=== PATIENT | male | born 2000 | race Hispanic/Latino ===

== ENCOUNTER 2022-07-15 13:22 | Emergency (ER) | payer OTHER ==
[~2022-07-15] VITALS: Ht 180.3 cm; Wt 104.3 kg
[2022-07-15 13:26] VITALS: BP 128/79
[2022-07-15] MEDS ORDERED: GENTAMICIN SULFATE 0.3% 5ML DROPS OD SCH (14:00)
[2022-07-15] MEDS ORDERED: TETRACAINE HCL 0.5% 4 ML OPHTH SOLN OP SCH (14:00)
[2022-07-15] MEDS ORDERED: FLUORESCEIN SODIUM 1 STRIP STRIP OP SCH (14:00)
[2022-07-15] MEDS ORDERED: TETANUS/DIPHTHERIA TOXOID [ADULT] 0.5 ML VIAL IM ONE (14:00)
== END 2022-07-15 14:50 | disposition home or self-care (01) ==
LOC: EDH 13:22
DX: S05.01XA Injury of conjunctiva and corneal abrasion without foreign body, right eye, initial encounter (principal); W22.8XXA Striking against or struck by other objects, initial encounter; Y93.89 Activity, other specified; Y92.89 Other specified places as the place of occurrence of the external cause; Y99.8 Other external cause status
CPT/HCPCS: 90471; 90714